=== PATIENT | male | born 2000 | race American Indian/Alaskan Native ===

== ENCOUNTER 2019-03-05 14:32 | Emergency (ER) | payer BC, OTHER ==
[2019-03-05 14:43] VITALS: BP 130/74
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
[2019-03-05] MEDS ORDERED: TORADOL IM ONE (16:14)
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
== END 2019-03-05 18:10 | disposition home or self-care (01) ==
LOC: ED 14:32
DX: S16.1XXA Strain of muscle, fascia and tendon at neck level, initial encounter (principal); S39.012A Strain of muscle, fascia and tendon of lower back, initial encounter; J45.909 Unspecified asthma, uncomplicated; Z79.899 Other long term (current) drug therapy; V49.59XA Passenger injured in collision with other motor vehicles in traffic accident, initial encounter; Y93.89 Activity, other specified; Y92.410 Unspecified street and highway as the place of occurrence of the external cause; Y99.8 Other external cause status
CPT/HCPCS: 72100; 72125; 96372; 99284; J1885